=== PATIENT | male | born 1960 | race Caucasian/White ===

== ENCOUNTER → 2017-12-05 08:07 | Outpatient (CLI) | payer BC, SELFPAY | PROVIDERS: PCP Family Medicine; Visit Provider Nurse Practitioner | DX: Z82.49 Family history of ischemic heart disease and other diseases of the circulatory system (principal); R06.02 Shortness of breath; R60.9 Edema, unspecified; R53.83 Other fatigue | CPT/HCPCS: 93017 ==

== ENCOUNTER → 2017-12-15 07:04 | Outpatient (CLI) | payer BC, SELFPAY ==
--- NOTE | 2017-12-15 07:08 | NM_ITS ---
History and Indications: Hyperlipidemia, family history, shortness of breath, palpitations and fatigue Procedure: Patient exercised on [place] protocol 10 minutes and 15 seconds, resting heart rate was 56 bpm, resting blood pressure 139/79, with exercise maximum heart rate achieved was 1 72 bpm which is equal to 106% of the maximum predicted heart rate and a blood pressure was 192/86 . Test was stopped due to shortness of breath and fatigue patient denied any complained of chest pain. Patient has good exercise capacity achieved 12.8mets of workload on treadmill, the blood pressure response to exercise was adequate. Electrocardiogram: Resting electrocardiogram showed sinus rhythm, with exercise there is less than 1.[address] segment depression noted from the baseline EKG. The EKG portion of the exercise Myoview is negative for ischemia. Cardiac stress and resting SPECT images: Cardiac stress and rest SPECT images were obtained using technetium 99 Myoview 32.5 mCi at stress and 10.7 mCi at rest. Gated SPECT further analysis of segmental wall motion and calculation of the ejection fraction also done. Cardiac stress and rest SPECT images show uniform myocardial activity without any segmental perfusion abnormality, computer derived ejection fraction is 51% with no obvious regional wall motion abnormality, right ventricle is normal size and contractility. Conclusion: 1. The EKG portion of the exercise Myoview is negative for ischemia, patient has good exercise capacity achieved 12.8mets of workload on treadmill, the blood pressure response to exercise was adequate, there was no exercise-induced chest discomfort. 2. No obvious scintigraphic evidence of reversible ischemia seen, either derived ejection fraction 51% with no obvious regional wall motion abnormality, right ventricle is normal size and contractility. 3. Normal exercise Myoview study.
== END ==
PROVIDERS: PCP Family Medicine; Visit Provider Nurse Practitioner
DX: R94.39 Abnormal result of other cardiovascular function study (principal)
CPT/HCPCS: 78452; 93017; A9502

== ENCOUNTER → 2019-12-25 08:12 | Outpatient (POV) | payer OTHER, SELFPAY | PROVIDERS: PCP Family Medicine; Visit Provider Physician Assistant | DX: Z00.00 Encounter for general adult medical examination without abnormal findings (principal) ==

== ENCOUNTER → 2020-01-02 14:12 | Outpatient (CLI) | payer OTHER, SELFPAY ==
--- NOTE | 2020-01-02 14:23 | XR_ITS ---
PROCEDURE: XR CHEST AP CLINICAL HISTORY: COUGH Cough and shortness of COMPARISON: No exams were available for comparison FINDINGS: The cardiomediastinal silhouette and pulmonary vascularity are within normal limits. The lungs are clear without infiltrates, suspicious nodules, or pleural effusions. No acute bony abnormalities. IMPRESSION: No acute findings. Dictated by: Christopher Hanna MD 01/02/2020 15:19 Electronically signed by Christopher Hanna MD in [place] 01/02/2020 15:19
[2020-01-02 15:26] LABS: Coronavirus 19 IgM Antibody Negative (Negative)
[2020-01-02 15:34] LABS: Coronavirus 19 IgG Antibody Positive (Negative)
[2020-01-04 13:37] LABS: Covid-19 Nasal PCR Sendout Lex NOT DETECTED
== END ==
PROVIDERS: PCP Family Medicine; Visit Provider Family Medicine
DX: Z03.818 Encounter for observation for suspected exposure to other biological agents ruled out (principal); R05 Cough
CPT/HCPCS: 36415; 71045; 86328; U0004

== ENCOUNTER → 2020-01-15 08:28 | Outpatient (POV) | payer OTHER, SELFPAY | PROVIDERS: PCP Family Medicine; Visit Provider Dermatology | DX: Z00.00 Encounter for general adult medical examination without abnormal findings (principal) ==

== ENCOUNTER → 2020-04-23 13:48 | Outpatient (CLI) | payer OTHER, SELFPAY ==
--- NOTE | 2020-04-23 13:56 | XR_ITS ---
PROCEDURE: XR CHEST 2V CLINICAL HISTORY: SOB COMPARISON: CR XR CHEST AP from 01/02/2020 FINDINGS: The cardiomediastinal silhouette and pulmonary vascularity are within normal limits. The lungs are clear without infiltrates, suspicious nodules, or pleural effusions. There is wedging of several dorsal vertebral bodies at T6-T7-T8-T9 and T12. Anterior osteophytes are present in the midthoracic spine. IMPRESSION: Thoracic kyphosis with multi wedge deformities which appear chronic otherwise negative Dictated by: Christopher Hanna MD 04/23/2020 15:27 Christopher Hanna MD in [facility] 04/23/2020 15:27
== END ==
PROVIDERS: PCP Family Medicine; Visit Provider Family Medicine
DX: R06.02 Shortness of breath (principal)
CPT/HCPCS: 71046

== ENCOUNTER 2021-04-05 10:51 | Emergency (ER) | payer OTHER, SELFPAY ==
[2021-04-05 11:12] VITALS: BP 111/81; PULSE 89; RESP 16; TEMP 36.8; O2SAT 95; BMI 31.4
--- NOTE | 2021-04-05 11:15 | HMH.EDUTC ---
[facility] Disposition Clinical Impression: Viral syndrome, Bronchitis, Exposure to COVID-19 virus Disposition: Home, Self-Care Condition on Discharge: Good Instructions: DI for COVID-19 (Suspected or Confirmed ), Preventing the Spread of Coronavirus Discharge Instructions Additional Instructions: Drink plenty of fluids. Take tylenol or ibuprofen for pain or fever. Take the medications as directed. Follow up with your regular doctor. GO TO THE ER FOR ANY WORSENING SYMPTOMS Quarantine until you know the results of your covid-19 test. If it is positive, the health department should call you and give you further instructions about your length of Quarantine and other things. Notify your school or workplace of your results and follow their instructions regarding return to work/school. Prescriptions: methylPREDNISolone [Medrol] 4 mg PO DIRECTED 6 Days #21 packet Transmission Status: Received by [facility] # Promethazine HCl [Phenergan 25mg tab] 25 mg PO Q6H PRN #12 tab PRN Reason: Nausea And Vomiting Transmission Status: Received by [facility] # Azithromycin [Z-William 250mg Tab*] 250 mg PO UD DOSE PK #6 tab Transmission Status: Received by [facility] # Referrals: Sunny Curiel MD [Primary Care Provider] - Time of Disposition: 11:37 Medical Decision Making - Medical Records Medical records reviewed: No: I reviewed the patient's medical records. - Javier Inquiry Pt receiving controlled substance: No Vital Signs: 04/05/21 11:12 04/05/21 11:18 Temperature 98.2 F 98.2 F Temperature Source Oral Pulse Rate 88 Pulse Rate [Left] 89 Respiratory Rate 16 18 Blood Pressure 111/81 Blood Pressure [Right Arm] 111/81 Blood Pressure Mean [Right Arm] 91 02 Sat by Pulse Oximetry 95 - Lab Data Lab results reviewed: Yes: I reviewed the patient's lab results. [facility] HPI - General Stated complaint: covid exposure,symptoms Time Seen by Provider: 04/05/21 11:15 Mode of Arrival: Ambulatory Source of Information: Patient Limitations: No Limitations Description of Symptoms (Recalled from Triage Doc. by RN): pt c/o cough and NUGENT. is positive for covid HEENT Symptoms (Recalled from RN notes): Yes (NUGENT) Resp Symptoms (Recalled from RN notes): Yes (cough) Skin Symptoms (Recalled from RN notes): No MS Symptoms (Recalled from RN notes): No Functional Status (Recalled from RN notes): na - History of Present Illness Provider Complaint: He states that he has felt bad for the past 1 day. His currently has covid-19. He c/o feeling very fatigued. He also has some body aches, runny nose and a cough. He has some chest congestion also. He has a history of getting bronchitis and very congested in his chest when he gets sick. He has had some chilling, but no documented fever. - Related Data Home Medications Medication Instructions Recorded Confirmed Fenofibrate 160 mg PO DAILY 10/10/18 11/26/19 omeprazole 20 mg capsule,delayed PO 11/26/19 11/26/19 release Previous Rx's Medication Instructions Recorded sulfamethoxazole 800 1 tab PO BID 7 Days #14 tab 01/18/19 mg-trimethoprim 160 mg tablet Azithromycin [Z-William 250mg Tab*] 250 mg PO UD DOSE PK #6 tab 04/05/21 Promethazine HCl [Phenergan 25mg 25 mg PO Q6H PRN #12 tab 04/05/21 tab] methylPREDNISolone [Medrol] 4 mg PO DIRECTED 6 Days #21 04/05/21 packet Allergies Allergy/AdvReac Type Severity Reaction Status Date / Time Penicillins Allergy Unknown Verified 11/26/19 15:56 allergy reaction - Worker's Comp Is this a Worker's Comp case?: No H History - Hepatitis A Screen Drug use history?: No High risk sexual behaviors?: No History of sexually transmitted infection?: No Currently employed?: No Childcare worker?: No Do you have indoor plumbing?: Yes Do you have electricity?: Yes Attestation statement:: This patient has been screened for Hepatitis A risk fac
[2021-04-05 11:18] VITALS: BP 111/81; PULSE 88; RESP 18; TEMP 36.8
== END 2021-04-05 11:42 | disposition home or self-care (01) ==
PROVIDERS: Emergency Provider Nurse Practitioner Family; PCP Family Medicine
DX: U07.1 COVID-19 (principal)
CPT/HCPCS: 99202; C9803; G0463; U0003; U0005

== ENCOUNTER 2021-04-10 09:55 | Outpatient (CLI) | payer OTHER, SELFPAY ==
[2021-04-10] VITALS (8 sets, daily range): BP systolic 104–134; BP diastolic 60–68; PULSE 69–82; RESP 18–20; TEMP 36.9–37.1; O2SAT 92–94
== END 2021-04-10 12:15 | disposition home or self-care (01) ==
LOC: INF 09:56
PROVIDERS: PCP Family Medicine; Visit Provider Family Medicine
DX: U07.1 COVID-19 (principal); Z23 Encounter for immunization
CPT/HCPCS: 96365

== ENCOUNTER 2021-04-11 08:48 | Emergency (ER) | payer OTHER, SELFPAY ==
[2021-04-11] VITALS (9 sets, daily range): BP systolic 116–142; BP diastolic 63–101; PULSE 74–93; RESP 13–20; TEMP 36.8; O2SAT 88–96; BMI 31.4
--- NOTE | 2021-04-11 09:04 | ECG_ITS ---
APPROVED REPORT Exam: Resting ECG HR:73 bpm ECG Measurements Heart Rate 73 AXES GA 156 P 64 QRSd 82 QRS -14 QT 394 T 14 QTc 434 Conclusion Normal sinus rhythm Normal ECG Electronically signed by : Bertt Rivas MD 04/13/2021 18:00:53
--- NOTE | 2021-04-11 09:18 | HMH.EDGENADL ---
ED Disposition Clinical Impression: Pneumonia due to COVID-19 virus Respiratory failure with hypoxia Qualifiers: Chronicity: acute Qualified Code(s): J96.01 - Acute respiratory failure with hypoxia Disposition: Home, Self-Care Condition on Discharge: Fair Additional Instructions: Oxygen at 2 L by nasal cannula. Decadron 6 mg daily for 5 days. Take aspirin 81 mg daily until your coronavirus symptoms resolved. Return to the emergency department if increasing shortness of breath or pulse oximetry less than 90% on oxygen. Call Dr. Preston on Tuesday for follow-up. COVID-19 Isolation: Isolate yourself for a MINIMUM of 10 days from onset of symptoms: What to do: Monitor your symptoms. If you have an emergency warning sign (including trouble breathing), seek emergency medical care immediately. Stay in a separate room from other household members, if possible. Use a separate bathroom, if possible. Avoid contact with other members of the household and pets. Don?t share personal household items, like cups, towels, and utensils. Wear a mask when around other people if able. You can be around others AFTER: 10 days since symptoms first appeared AND 24 hours with no fever without the use of fever-reducing medications AND Other symptoms of COVID-19 are improving Prescriptions: dexAMETHasone [Decadron] 6 mg PO DAILY #5 tab Transmission Status: Pending to [facility] Referrals: Sunny Curiel MD [Primary Care Provider] - - Critical Care Critical Care Time: No Attestation: On 04/11/21, the high probability of a clinically significant, sudden or life threatening deterioration of the following system(s) required my full and direct attention, intervention and personal management. The time I documented below is in addition to time spent performing reported procedures but includes the following listed in this critical care notation. Medical Decision Making - Javier Inquiry Pt receiving controlled substance: No Vital Signs: 04/11/21 08:55 04/11/21 09:00 04/11/21 09:30 Temperature 98.3 F Temperature Source Oral Pulse Rate 74 76 Pulse Rate [Left Radial] 76 Respiratory Rate 18 13 Blood Pressure 127/68 127/63 Blood Pressure [Right Arm] 117/72 Blood Pressure Mean 81 86 Blood Pressure Mean [Right Arm] 87 Blood Pressure Source [Right Arm] Automatic Cuff Blood Pressure Position [Right Arm] Sitting 02 Sat by Pulse Oximetry 88 L 95 94 L Oxygen Delivery Method Room Air Oxygen Flow Rate (LPM) 04/11/21 10:59 04/11/21 11:31 04/11/21 12:00 Temperature Temperature Source Pulse Rate 82 92 H 92 H Pulse Rate [Left Radial] Respiratory Rate 18 18 Blood Pressure 116/89 142/87 H 122/101 H Blood Pressure [Right Arm] Blood Pressure Mean 95 101 103 Blood Pressure Mean [Right Arm] Blood Pressure Source [Right Arm] Blood Pressure Position [Right Arm] 02 Sat by Pulse Oximetry 95 96 96 Oxygen Delivery Method Nasal Cannula Nasal Cannula Oxygen Flow Rate (LPM) 2 2 04/11/21 12:30 Temperature Temperature Source Pulse Rate 93 H Pulse Rate [Left Radial] Respiratory Rate 18 Blood Pressure 140/86 Blood Pressure [Right Arm] Blood Pressure Mean 105 Blood Pressure Mean [Right Arm] Blood Pressure Source [Right Arm] Blood Pressure Position [Right Arm] 02 Sat by Pulse Oximetry 94 L Oxygen Delivery Method Nasal Cannula Oxygen Flow Rate (LPM) 2 - Lab Data Lab Results 04/11/21 09:29: WBC 7.9, RBC 5.22, Hgb 15.7, Hct 45.9, MCV 87.9, MCH 30.1, MCHC 34.3, RDW 13.8, Plt Count 240, MPV 8.0, Neut % (Auto) 82.9 H, Lymph % (Auto) 13.4, [place] % (Auto) 3.2, Eos % (Auto) 0.0 L, Baso % (Auto) 0.4, Neut # (Auto) 6.6, Lymph # (Auto) 1.1, [place] # (Auto) 0.3, Eos # (Auto) 0.0, Baso # (Auto) 0.0 04/11/21 09:29: Sodium 140, Potassium 3.9, Chloride 104, Carbon Dioxide 26, Anion Gap 13.9, BUN 16, Creatinine 0.90, Estimated Creat Clear 112, Estimated GFR 86, Est GFR ( Amer
--- NOTE | 2021-04-11 09:27 | XR_ITS ---
PROCEDURE INFORMATION: Exam: XR Chest Exam date and time: 04/11/2021 9:27 AM Age: 61 years old Clinical indication: Shortness of breath; Additional info: Covid, SOA TECHNIQUE: Imaging protocol: XR of the chest. Views: 1 view. COMPARISON: CT ANGIO CHEST PE PROTOCOL 04/11/2021 10:01 AM FINDINGS: Lungs: Patchy opacities bilaterally. Findings consistent with frequently reported features of Covid-19 pneumonia. Pleural spaces: Unremarkable. No pleural effusion. No pneumothorax. Heart/Mediastinum: Unremarkable. No cardiomegaly. Bones/joints: Unremarkable. IMPRESSION: Patchy opacities bilaterally. Findings consistent with frequently reported features of Covid-19 pneumonia. Recommend follow-up as indicated.
--- NOTE | 2021-04-11 09:27 | CT_ITS ---
PROCEDURE INFORMATION: Exam: CTA Chest With Contrast Exam date and time: 04/11/2021 9:27 AM Age: 61 years old Clinical indication: Shortness of breath; Additional info: Covid, SOA TECHNIQUE: Imaging protocol: Computed tomographic angiography of the chest with contrast. 3D rendering (Not supervised by radiologist): MIP and/or 3D reconstructed images were created by the technologist. Radiation optimization: All CT scans at this facility use at least one of these dose optimization techniques: automated exposure control; mA and/or kV adjustment per patient size (includes targeted exams where dose is matched to clinical indication); or iterative reconstruction. Contrast material: ISOVUE; Contrast volume: 75 ml; Contrast route: INTRAVENOUS (IV); COMPARISON: CR XR CHEST 2V 04/23/2020 2:00 PM FINDINGS: Pulmonary arteries: Negative for acute pulmonary embolism. Aorta: Unremarkable. No aortic aneurysm. No aortic dissection. Lungs: Patchy areas of ground-glass density bilaterally. Findings consistent with frequently reported features of Covid-19 pneumonia. 5 mm pulmonary nodules within the left subpleural upper and lower lobes. Recommend follow-up as indicated. Pleural spaces: Unremarkable. No pneumothorax. No pleural effusion. Heart: Unremarkable. No cardiomegaly. No pericardial effusion. Lymph nodes: Unremarkable. No enlarged lymph nodes. Bones/joints: Nonacute wedge fractures in the midthoracic spine. Soft tissues: Unremarkable. IMPRESSION: 1. Negative for acute pulmonary embolism. 2. Patchy areas of ground-glass density bilaterally. Findings consistent with frequently reported features of Covid-19 pneumonia. 3. 5 mm pulmonary nodules within the left subpleural upper and lower lobes. Recommend follow-up as indicated. FLEISCHNER CRITERIA FOR MANAGEMENT OF PULMONARY NODULES Low Risk Patients: <6mm, no follow-up 6-8mm, 6-12 month follow-up >8mm, CT @ 3, months, PET/CT or biopsy High Risk Patients: <6mm, follow-up 12 months 6-8mm, 6-12 month then 18-24 month follow-up >8mm, same as for low risk References: Kale Saldana et al. Guidelines for Management of Incidental Pulmonary Nodules Detected on CT Images: From the Fleischner Society 2017. Radiology. 2017;284(1):228-243.
[2021-04-11 09:34] LABS: Basophils % 0.4 % (0.1-2.0); Hematocrit 45.9 % (42.0-52.0); Hemoglobin 15.7 g/dL (14.1-18.0); Lymphocytes # 1.1 K/mm3 (0.7-4.5); Lymphocytes % 13.4 % (10-50); Mean Corpuscular HGB Conc 34.3 g/dL (31.8-35.4); Mean Corpuscular Hemoglobin 30.1 pg (27.0-31.2); Mean Corpuscular Volume 87.9 fl (80-94); Monocytes # 0.3 K/mm3 (0.1-1.0); Monocytes % 3.2 % (1.7-9.3); Neutrophils # 6.6 K/mm3 (1.8-7.8); Neutrophils % 82.9 % (37.0-80.0); Platelet Count 240 K/mm3 (142-424); Red Blood Count 5.22 M/mm3 (4.60-6.20); Red Cell Distribution Width 13.8 % (11.5-17.5); White Blood Count 7.9 K/mm3 (4.8-10.8)
[2021-04-11 09:36] LABS: Chloride 104 mmol/L (98-107); Potassium 3.9 mmoL/L (3.5-5.1); Sodium 140 mmol/L (136-145)
[2021-04-11 09:38] LABS: Alanine Aminotransferase 70 U/L (12-78); Alkaline Phosphatase 81 U/L (38-126); Aspartate Amino Transferase 73 U/L (17-59); Bilirubin,Total 0.8 mg/dl (0.2-1.3); Blood Urea Nitrogen 16 mg/dl (9-20); Creatinine Clearance Estimated 112 mL/min (50-200); Estimated Glomerular Filt Rate 86 ml/min (>60); GFR (African American) 104 ML/MIN (>60)
[2021-04-11 09:39] LABS: Albumin Level 4.3 g/dl (3.5-5.0); Albumin/Globulin Ratio 1.2 (1.1-1.8); Anion Gap 13.9 mEq/L (5-15); Calcium 9.3 mg/dl (8.4-10.2); Carbon Dioxide 26 mmol/L (22.0-30.0); Globulin 3.6 g/dL (1.3-3.2); Glucose 121 mg/dl (74-100); Total Protein,Serum 7.9 g/dl (6.3-8.2)
--- NOTE | 2021-04-11 11:36 | PC.NURSE ---
Dr Finley paged for Dr Preston pt
--- NOTE | 2021-04-11 11:56 | PC.NURSE ---
Dr. Tushar bojorquez
--- NOTE | 2021-04-11 11:59 | PC.NURSE ---
called dietary for some soup for pt
--- NOTE | 2021-04-11 12:32 | PC.NURSE ---
Dr. Tushar bojorquez
--- NOTE | 2021-04-11 13:08 | PC.NURSE ---
Faxed documents needed for home oxygen to [facility]
== END 2021-04-11 13:52 | disposition home or self-care (01) ==
PROVIDERS: Emergency Provider Emergency Medicine; PCP Family Medicine
DX: U07.1 COVID-19 (principal); J12.82 Pneumonia due to coronavirus disease 2019; J96.01 Acute respiratory failure with hypoxia; K21.9 Gastro-esophageal reflux disease without esophagitis; E78.5 Hyperlipidemia, unspecified; Z79.899 Other long term (current) drug therapy
CPT/HCPCS: 71045; 71275; 80053; 85025; 93005; 96365; 96375; 99283; Q9967

== ENCOUNTER 2021-04-15 10:24 | Inpatient (IN) | payer OTHER, SELFPAY ==
[2021-04-15] VITALS (14 sets, daily range): BP systolic 121–153; BP diastolic 77–103; PULSE 71–104; RESP 18–28; TEMP 36.6–37; O2SAT 92–98; BMI 31.4
--- NOTE | 2021-04-15 11:01 | XR_ITS ---
PROCEDURE: XR CHEST PORTABLE CLINICAL HISTORY: SOA, cough COMPARISON: CR XR CHEST AP from 01/02/2020 CR XR CHEST 2V from 04/23/[address] ANGIO CHEST PE PROTOCOL from 04/11/2021 CR XR CHEST PORTABLE from 04/11/2021 FINDINGS: The cardiomediastinal silhouette and pulmonary vascularity are within normal limits. Persistent bilateral areas of consolidation and atelectatic changes consistent with Covid19 pneumonia. Overall not significantly changed. No effusions or pneumothorax. No acute bony abnormalities. IMPRESSION: No change bilateral Covid19 pneumonia Dictated by: Christopher Hanna MD 04/15/2021 12:18 Christopher Hanna MD in [facility] 04/15/2021 12:18
[2021-04-15 11:12] LABS: Basophils % 0.3 % (0.1-2.0); Eosinophils % 0.1 % (0.1-12.0); Hematocrit 50.2 % (42.0-52.0); Hemoglobin 16.9 g/dL (14.1-18.0); Lymphocytes % 9.3 % (10-50); Mean Corpuscular HGB Conc 33.7 g/dL (31.8-35.4); Mean Corpuscular Hemoglobin 30.3 pg (27.0-31.2); Mean Corpuscular Volume 89.9 fl (80-94); Mean Platelet Volume 7.3 fl (7.4-10.4); Monocytes # 0.4 K/mm3 (0.1-1.0); Neutrophils # 9.1 K/mm3 (1.8-7.8); Neutrophils % 86.4 % (37.0-80.0); Platelet Count 382 K/mm3 (142-424); Red Blood Count 5.59 M/mm3 (4.60-6.20); Red Cell Distribution Width 12.9 % (11.5-17.5); White Blood Count 10.6 K/mm3 (4.8-10.8)
[2021-04-15 11:17] LABS: MANUAL DIFFERENTIAL MANUAL DIFFERENTIAL (MANUAL DIFF)
[2021-04-15 11:20] LABS: Chloride 102 mmol/L (98-107); Sodium 138 mmol/L (136-145)
[2021-04-15 11:21] LABS: Potassium 3.9 mmoL/L (3.5-5.1)
[2021-04-15 11:23] LABS: Alanine Aminotransferase 90 U/L (12-78); Aspartate Amino Transferase 58 U/L (17-59); Blood Urea Nitrogen 22 mg/dl (9-20); Creatinine Clearance Estimated 112 mL/min (50-200); Estimated Glomerular Filt Rate 98 ml/min (>60); GFR (African American) 119 ML/MIN (>60)
[2021-04-15 11:24] LABS: Albumin Level 4.2 g/dl (3.5-5.0); Albumin/Globulin Ratio 1.2 (1.1-1.8); Alkaline Phosphatase 79 U/L (38-126); Anion Gap 14.9 mEq/L (5-15); Bilirubin,Total 0.9 mg/dl (0.2-1.3); Calcium 9.4 mg/dl (8.4-10.2); Carbon Dioxide 25 mmol/L (22.0-30.0); Globulin 3.6 g/dL (1.3-3.2); Glucose 111 mg/dl (74-100); Lactic Acid 1.2 mmol/L (0.7-2.1); Total Protein,Serum 7.8 g/dl (6.3-8.2)
--- NOTE | 2021-04-15 11:30 | PC.NURSE ---
FADUMO GUTIERREZ states while in room with pt he increased O2 to 6L per NC r/t SaO2 91% will continue to monitor
--- NOTE | 2021-04-15 11:31 | CT_ITS ---
PROCEDURE INFORMATION: Exam: CTA Chest With Contrast Exam date and time: 04/15/2021 11:31 AM Age: 61 years old Clinical indication: Shortness of breath; Additional info: Covid, hypoxia TECHNIQUE: Imaging protocol: Computed tomographic angiography of the chest with contrast. 3D rendering (Not supervised by radiologist): MIP and/or 3D reconstructed images were created by the technologist. Radiation optimization: All CT scans at this facility use at least one of these dose optimization techniques: automated exposure control; mA and/or kV adjustment per patient size (includes targeted exams where dose is matched to clinical indication); or iterative reconstruction. Contrast material: ISOVUE 370; Contrast volume: 70 ml; Contrast route: INTRAVENOUS (IV); COMPARISON: CT ANGIO CHEST PE PROTOCOL 04/11/2021 10:01 AM FINDINGS: Pulmonary arteries: No pulmonary emboli identified. Aorta: Unremarkable. No aortic aneurysm. No aortic dissection. Lungs: No substantial change in the appearance of patchy ground-glass airspace opacities throughout all lobes of the lungs bilaterally. Pleural spaces: Similar appearance of 5 mm subpleural nodules in the lingula (series 2, image 179) and left lower lobe (image 204). Heart: Unremarkable. No cardiomegaly. No pericardial effusion. Lymph nodes: Unremarkable. No enlarged lymph nodes. Liver: Similar low-density lesions at the hepatic dome. Bones/joints: Remote appearing wedge deformities in the midthoracic spine. No acute fractures. Soft tissues: Unremarkable. IMPRESSION: 1. No pulmonary emboli identified. 2. No substantial change in the appearance of multilobar pneumonia relative to 04/11/2021. 3. Redemonstrated 5 mm left lung nodules. For patients at low risk (minimal or absent history of smoking and of other known risk factors), no routine follow-up is indicated. For patients at high risk (history of smoking or of other known risk factors), consider optional CT Chest at 12 months. (Reference: Kale) REFERENCES: Kale Saldana, et al. Guidelines for Management of Incidental Pulmonary Nodules Detected on CT Images: From the Fleischner Society 2017. Radiology. 2017;284(1):228-243.
--- NOTE | 2021-04-15 11:33 | PC.NURSE ---
notified rad of CTA order
[2021-04-15 11:40] LABS: Lymphocytes % 8 % (10-50); Monocytes % 7 % (2-9); Neutrophils % 85 % (42-76); Total Cells Counted 100
[2021-04-15 11:41] LABS: Hypochromasia 1+; Microcytosis 1+; Platelet Estimate Normal
[2021-04-15 11:44] LABS: Alanine Aminotransferase 89 U/L (12-78); Albumin Level 4.1 g/dl (3.5-5.0); Albumin/Globulin Ratio 1.1 (1.1-1.8); Alkaline Phosphatase 72 U/L (38-126); Aspartate Amino Transferase 56 U/L (17-59); Bilirubin,Total 1.1 mg/dl (0.2-1.3); Blood Urea Nitrogen 23 mg/dl (9-20); Calcium 9.5 mg/dl (8.4-10.2); Carbon Dioxide 25 mmol/L (22.0-30.0); Chloride 102 mmol/L (98-107); Creatinine Clearance Estimated 112 mL/min (50-200); Estimated Glomerular Filt Rate 98 ml/min (>60); GFR (African American) 119 ML/MIN (>60); Globulin 3.6 g/dL (1.3-3.2); Glucose 109 mg/dl (74-100); Lactate Dehydrogenase 275 U/L (313-618); Sodium 137 mmol/L (136-145); Total Protein,Serum 7.7 g/dl (6.3-8.2)
[2021-04-15 11:48] LABS: D-Dimer 0.74 ug/mL (0.0-0.5)
--- NOTE | 2021-04-15 12:18 | PC.NURSE ---
pt return from CT
--- NOTE | 2021-04-15 12:28 | HMH.EDSOB ---
ED Disposition Clinical Impression: COVID-19, Pneumonia due to COVID-19 virus Disposition: Admitted As Inpatient Condition on Discharge: Fair Referrals: Cortes Mims MD [Primary Care Provider] - - Critical Care Critical Care Time: No Attestation: On 04/15/21, the high probability of a clinically significant, sudden or life threatening deterioration of the following system(s) required my full and direct attention, intervention and personal management. The time I documented below is in addition to time spent performing reported procedures but includes the following listed in this critical care notation. Medical Decision Making - Javier Inquiry Pt receiving controlled substance: No Vital Signs: 04/15/21 10:25 04/15/21 10:38 04/15/21 11:00 Temperature 98.0 F Temperature Source Oral Pulse Rate 86 83 Pulse Rate [Right Radial] 99 H Respiratory Rate 22 22 22 Blood Pressure 134/87 121/80 Blood Pressure [Right Arm] 134/87 Blood Pressure Mean 111 93 Blood Pressure Mean [Right Arm] 102 Blood Pressure Source [Right Arm] Automatic Cuff Blood Pressure Position [Right Arm] Sitting 02 Sat by Pulse Oximetry 93 L 94 L 92 L Oxygen Delivery Method Nasal Cannula Nasal Cannula Nasal Cannula Oxygen Flow Rate (LPM) 4 4 4 04/15/21 11:12 04/15/21 11:30 04/15/21 11:31 Temperature Temperature Source Pulse Rate 86 Pulse Rate [Right Radial] Respiratory Rate 22 Blood Pressure 137/77 Blood Pressure [Right Arm] Blood Pressure Mean 86 Blood Pressure Mean [Right Arm] Blood Pressure Source [Right Arm] Blood Pressure Position [Right Arm] 02 Sat by Pulse Oximetry 94 L 92 L 92 L Oxygen Delivery Method Nasal Cannula Nasal Cannula Nasal Cannula Oxygen Flow Rate (LPM) 4 4 6 - Lab Data Lab Results 04/15/21 11:00: WBC 10.6, RBC 5.59, Hgb 16.9, Hct 50.2, MCV 89.9, MCH 30.3, MCHC 33.7, RDW 12.9, Plt Count 382, MPV 7.3 L, Neut % (Auto) 86.4 H, Lymph % (Auto) 9.3 L, [place] % (Auto) 4.0, Eos % (Auto) 0.1, Baso % (Auto) 0.3, Neut # (Auto) 9.1 H, Lymph # (Auto) 1.0, [place] # (Auto) 0.4, Eos # (Auto) 0.0, Baso # (Auto) 0.0, Total Counted 100, Neutrophils % (Manual) 85 H, Lymphocytes % (Manual) 8 L, Monocytes % (Manual) 7, Platelet Estimate Normal, Hypochromasia 1+, Microcytosis 1+ 04/15/21 11:00: Sodium 138, Potassium 3.9, Chloride 102, Carbon Dioxide 25, Anion Gap 14.9, BUN 22 H, Creatinine 0.80, Estimated Creat Clear 112, Estimated GFR 98, Est GFR ( Amer) 119, Glucose 111 H, Calcium 9.4, Total Bilirubin 0.9, AST 58, ALT 90 H, Alkaline Phosphatase 79, Total Protein 7.8, Albumin 4.2, Globulin 3.6 H, Albumin/Globulin Ratio 1.2 04/15/21 11:00: Lactate 1.2 04/15/21 11:00: D-Dimer 0.74 H 04/15/21 11:00: Sodium 137, Potassium 4.0, Chloride 102, Carbon Dioxide 25, Anion Gap 14.0, BUN 23 H, Creatinine 0.80, Estimated Creat Clear 112, Estimated GFR 98, Est GFR ( Amer) 119, Glucose 109 H, Calcium 9.5, Total Bilirubin 1.1, AST 56, ALT 89 H, Alkaline Phosphatase 72, Lactate Dehydrogenase 275 L, Total Protein 7.7, Albumin 4.1, Globulin 3.6 H, Albumin/Globulin Ratio 1.1 Result diagrams: 04/15/21 11:00 04/15/21 11:00 Orders (Tests/Meds): ED MEDICATIONS Discontinued Medications Generic Name Dose Route Start Last Admin Trade Name Freq PRN Reason Stop Dose Admin Iopamidol 70 ml 04/15/21 12:22 04/15/21 12:23 Iopamidol-370 (76%);100ml Bottle IV 04/15/21 12:23 70 ml ONCE ONE Administration Sodium Chloride 40 ml 04/15/21 12:22 04/15/21 12:23 0.9 % Sodium Chloride 50 Ml Vial IV 04/15/21 12:23 40 ml ONCE ONE Administration Sodium Chloride 10 ml 04/15/21 12:22 04/15/21 12:23 Sodium Chloride 0.9% 10ml Syr (Rad Only) IV 04/15/21 12:23 10 ml ONCE ONE Administration ORDERS Category Date Time Status CTA Chest [CT angio chest PE protocol] Stat Cat Scan 04/15/21 11:31 Taken Rapid PCR Covid and Flu A/B Stat Lab 04/15/21 11:44 Ordered Blood Culture Stat Micr
[2021-04-15 12:48] LABS: Influenza A, PCR Not Detected (NotDetected); Influenza B, PCR Not Detected (NotDetected)
--- NOTE | 2021-04-15 13:02 | PC.NURSE ---
pt sitting up eating lunch tray at this time
--- NOTE | 2021-04-15 13:07 | PC.NURSE ---
Dr Felicita bojorquez
[2021-04-15 13:13] LABS: Coronavirus 19, PCR Detected (NotDetected)
--- NOTE | 2021-04-15 13:45 | HMH.PHAINT ---
MEDICATION RECONCILIATION COMPLETE USING SURESCRIPTS AND PREVIOUS DISCHARGE PAPERWORK
--- NOTE | 2021-04-15 14:00 | PC.NURSE ---
Called report to Jane in the unit
--- NOTE | 2021-04-15 14:10 | PC.NURSE ---
pt arrived to [facility] unit room 266 via wheelchair from ED.
--- NOTE | 2021-04-15 14:23 | HMH.PHAVTE ---
[facility] Pharmacy VTE Monitoring - Patient Demographics Admission date: 04/15/21 Report Date: 04/15/21 Time: 14:23 Allergies/Adverse Reactions: Patient Allergies Penicillins Allergy (Verified 11/26/19 15:56) Unknown allergy reaction Height: 1.8 m Weight: 102.058 kg Patient Problems: Current Active Problems Pneumonia due to COVID-19 virus (Acute) COVID-19 (Acute) - VTE Risk Labs: VTE Related Lab Results Hgb 16.9 g/dL (14.1-18.0) 04/15/21 11:00 Hct 50.2 % (42.0-52.0) 04/15/21 11:00 Plt Count 382 K/mm3 (142-424) 04/15/21 11:00 BUN 22 mg/dl (9-20) H 04/15/21 11:00 BUN 23 mg/dl (9-20) H 04/15/21 11:00 Creatinine 0.80 mg/dl (0.66-1.25) 04/15/21 11:00 Creatinine 0.80 mg/dl (0.66-1.25) 04/15/21 11:00 Estimated Creat Clear 112 mL/min (50-200) 04/15/21 11:00 Estimated Creat Clear 112 mL/min (50-200) 04/15/21 11:00 - Prophylaxis VTE Prophylaxis Ordered?: Yes Types of VTE Prophylaxis: TEDS Knee High, Pharmacological Location of Applied Device: Bilateral Lower Extremeties Pharmacologic Type: Enoxaparin
--- NOTE | 2021-04-15 15:13 | PC.NURSE ---
pt pushed call light and verbalized that he did NOT want to receive Remdesivir. Infusion is currently running and he has received aprox 20mL of bag. I took bag down and discarded remainder of medication. Pt explains that he had 2 buddies of COVID that received Remdesivir . I verbalized understanding. Called pharmacy and updated them. Faxed discontinued order to pharmacy and updated Dr. Mims's office.
--- NOTE | 2021-04-15 16:30 | HMH.PULMCON ---
*Admission Date: 04/15/21 *Reason for consult:: Acute hypoxic reps failure, COVID pneumonia *History of present illness: Mr. Haynes 61-year-old male no reported significant smoking history, no prior respiratory complaints never used inhalers before presented to the hospital worsening respiratory distress patient was diagnosed with COVID-19 pneumonia 5 days ago during which a CT was performed that was negative for pulmonary embolism, patient was given monoclonal antibody infusion and was sent home on antibiotics he was also started on anticoagulation as an outpatient basis. Patient admits continued worsening respiratory symptoms and presented to the ER during which he was found to be hypoxic and needing oxygen per minute maintaining saturations at desired level and was eventually admitted to the hospital and pulmonary was called for further management [facility] History Medical History: Reports:: Gastroesophageal Reflux Disease(GERD), Hyperlipidemia Denies:: Cancer, Diabetes Mellitus Type 1, Diabetes Mellitus Type 2, Internal Pacemaker, Lung Disease, MRSA, Seizures *Have you ever received a pneumonia vaccine?: No *Have you received a flu vaccine this season?: No Other Medical History: Reports: Other Laterality Cases: Bilateral: Tonsillectomy Other Surgeries: Yes: Other (cystectomy). No: Pacemaker Amputation: No Fractures: No - *Social History Last grade of school completed: High school graduate Smoking Status: Never smoker Alcohol Intake: never Substance Use Type: denies use *Occupational Status:: employed Housing: house Household Members: spouse *Travel in the last 8 weeks: None Family Hx:: Non-contributory ROS - Cons Reports anorexia, Reports body ache(s), Reports fatigue, Reports fever(s) - Eyes Denies blurry vision - ENT Denies bleeding gums - Card Reports shortness of breath, Reports shortness of breath with activity - Resp Respiratory: Reports shortness of breath, Reports chest congestion, Reports dyspnea on exertion, Denies excessive phlegm production, Denies coughing up blood - GI Gastrointestingal: Denies: abdominal pain Meds Home Medications Medication Instructions Recorded Confirmed Type Rivaroxaban [Xarelto] 20 mg PO HS 04/15/21 04/15/21 History dexAMETHasone [Dexamethasone] 6 mg PO DAILY 04/15/21 04/15/21 History levoFLOXacin [Levaquin 500mg 500 mg PO DAILY 04/15/21 04/15/21 History tab] Allergies Allergy/AdvReac Type Severity Reaction Status Date / Time Penicillins Allergy Unknown Verified 11/26/19 15:56 allergy reaction Exam - Constitutional Constitutional:: Present: no acute distress, comfortable - HENMT Exam HENMT: Present: normocephalic, atraumatic - Eye Exam Eyes:: Present: normal appearance both eyes and related structures - Neck Exam Neck:: Present: normal visual inspection - Respiratory Exam Respiratory:: Present: able to speak in complete sentences, respiratory distress, rales. Absent: accessory muscle use - Cardiovascular Exam Cardiac:: Present: S1, S2 - GI Exam GI:: Present: soft - Skin Exam Skin: Present: warm, no rash - Neurological Exam Neurological: Present: alert, awake, normal cognition - Extremities Exam Extremities: Present: no cyanosis, no clubbing, no edema Internal Medicine - CN: Reslt - Labs CBC & Chem 7: 04/15/21 11:00 04/15/21 11:00 Labs: Short CBC 04/15/21 Range/Units 11:00 WBC 10.6 (4.8-10.8) K/mm3 Hgb 16.9 (14.1-18.0) g/dL Hct 50.2 (42.0-52.0) % Plt Count 382 (142-424) K/mm3 BMP 04/15/21 04/15/21 11:00 11:00 Sodium 138 137 Potassium 3.9 4.0 Chloride 102 102 Carbon Dioxide 25 25 BUN 22 H 23 H Creatinine 0.80 0.80 Glucose 111 H 109 H Calcium 9.4 9.5 Liver Function 04/15/21 04/15/21 Range/Units 11:00 11:00 Total Bilirubin 0.9 1.1 (0.2-1.3) mg/dl AST 58 56 (17-59) U/L ALT 90 H 89 H (12-78) U/L Alkaline Phosphatase 79 72 (38-126) U/L
[2021-04-15 17:20] LABS: C-Reactive Protein 11.2 mg/L (0-4)
[2021-04-15 18:30] LABS: Ferritin 1130 ng/ml (17.9-464)
--- NOTE | 2021-04-15 18:48 | PC.NURSE ---
shift note: new admit from ED this afternoon. Pt is A&O. Is very anxious. Has no past medical hx per pt. Is on 6L NC cont. O2 sat remained >90%. O2 sat best when pt is prone or on his side. Dry hacky cough noted. NSR on tele. HTN noted. Afebrile. No edema. Ambulates without assistance in room and to bathroom. Voided once this shift. NO BM. O2 extension tubing applied to allow him more mobility around the room. Pt refused Remdesivir infusion but is agreeable to start Baricitinib tomorrow. Ate aprox 50% of dinner. has been updated on POC.
[2021-04-16] VITALS (8 sets, daily range): BP systolic 108–129; BP diastolic 70–88; PULSE 61–94; RESP 15–19; TEMP 36.4–36.9; O2SAT 90–97
--- NOTE | 2021-04-16 05:49 | PC.NURSE ---
NO acute changes overnight A&O x4. PT has remained on 6L NC through the night, sats >94%. Pt has proned himself for several hours this shift. NO c/o pain. Has ambulated with standby assist to the bathroom and tolerates well. VSS, call light in reach, no concerns at this time.
--- NOTE | 2021-04-16 09:29 | HMH.PULMPN ---
Internal Medicine - PN: Subj *Date: 04/16/21 *Time: 13:28 Interval history: Patient denies any new respiratory complaints. Stable symptoms since yesterday. Exam - Constitutional Constitutional:: Present: no acute distress, comfortable - HENMT Exam HENMT: Present: normocephalic, moist mucous membranes - Eye Exam Eyes:: Present: normal appearance both eyes and related structures - Neck Exam Neck:: Present: normal visual inspection - Respiratory Exam Respiratory:: Present: able to speak in complete sentences, respiratory distress, rales - Cardiovascular Exam Cardiac:: Present: S1, S2 - GI Exam GI:: Present: soft - Skin Exam Skin: Present: warm, no rash, dry - Neurological Exam Neurological: Present: alert, awake, normal cognition - Extremities Exam Extremities: Present: no cyanosis, no clubbing, no edema Assessment and Plan - Assessment and plan all Dx Assessment and Plan for all problems:: #Acute hypoxic respiratory failure: #COVID-19 pneumonia: 61-year-old significant smoking history no prior respiratory complaints presented to the hospital worsening respiratory distress. Had a recent diagnosis of COVID-19 1 after which he received monoclonal antibody infusion along with steroids as well as initiating anticoagulation on an outpatient basis as per the patient but his CTA for dissection today was negative for any pulmonary embolism. Influenza AB PCR negative. SARS-CoV-2 PCR positive on this admission. CTA on this admission did not show any significant changes from his recent prior, however showed bilateral diffuse patchy groundglass opacities. No mediastinal or hilar adenopathy noted. Afebrile. No evidence of leukocytosis. Renal function stable. D-dimer elevated at 0.74. LDH at 275. CRP mildly elevated at 11.2. Ferritin at 1130. Interval update: Patient respiratory status remained stable since yesterday. He continued to be on 6 L nasal cannula saturating 92% and above. He continued to follow proning protocol. We will hold off on initiating Barcitinib as no significant elevation in CRP. Plan: Continue awake proning protocol. Continue dexamethasone for COVID-19 pneumonia. Patient refused remdesivir. Continue levofloxacin for total of 5 days. Advair 250 HFA twice daily. DuoNebs every 6 hours as needed Recommend chemical DVT prophylaxis #Thank you for involving pulmonary in this patient care. We will continue to follow.
--- NOTE | 2021-04-16 10:17 | HMH.HP ---
*Admission Date: 04/15/21 *Chief complaint: SHortness of breath *History of present illness: 51-year-old male patient presented to the [facility] emergency department with reports of increasing shortness of breath, generalized weakness, productive yellow cough, and nasal congestion. He reports he was prescribed oxygen by cardiology and can go up to 4 L per nasal cannula as needed, he reports he was using 3 L at home and reported he was still having increased shortness of breath. He is Covid positive as of 8 days ago and reports being symptomatic for 11 days he is also been on prednisone and levofloxacin for bilateral pneumonia and was also started on Xarelto he denies headache, visual changes, swelling or pain. And does admit to fever/chills/body aches he also denies nausea, vomiting, or abdominal pain. 04/15/21 CXR: FINDINGS: The cardiomediastinal silhouette and pulmonary vascularity are within normal limits. Persistent bilateral areas of consolidation and atelectatic changes consistent with Covid19 pneumonia. Overall not significantly changed. No effusions or pneumothorax. No acute bony abnormalities. IMPRESSION: No change bilateral Covid19 pneumonia Dictated by: Christopher Hanna MD 04/15/21 Chest CTA: FINDINGS: Pulmonary arteries: No pulmonary emboli identified. Aorta: Unremarkable. No aortic aneurysm. No aortic dissection. Lungs: No substantial change in the appearance of patchy ground-glass airspace opacities throughout all lobes of the lungs bilaterally. Pleural spaces: Similar appearance of 5 mm subpleural nodules in the lingula (series 2, image 179) and left lower lobe (image 204). Heart: Unremarkable. No cardiomegaly. No pericardial effusion. Lymph nodes: Unremarkable. No enlarged lymph nodes. Liver: Similar low-density lesions at the hepatic dome. Bones/joints: Remote appearing wedge deformities in the midthoracic spine. No acute fractures. Soft tissues: Unremarkable. IMPRESSION: 1. No pulmonary emboli identified. 2. No substantial change in the appearance of multilobar pneumonia relative to 04/11/2021. 3. Redemonstrated 5 mm left lung nodules. For patients at low risk (minimal or absent history of smoking and of other known risk factors), no routine follow-up is indicated. For patients at high risk (history of smoking or of other known risk factors), consider optional CT Chest at 12 months. Electronically signed by Alexandra Collado MD This 61-year-old male patient lying in bed resting quietly with eyes open, reports he feels better today than he did yesterday reports occasional shortness of breath during the night with exertion. Current oxygenation status 94% on 6 L per nasal cannula. Pronation encouraged [facility] History I have reviewed the patient's past medical history: Yes Medical History: Reports:: Gastroesophageal Reflux Disease(GERD), Hyperlipidemia Denies:: Cancer, Diabetes Mellitus Type 1, Diabetes Mellitus Type 2, Internal Pacemaker, Lung Disease, MRSA, Seizures *Have you ever received a pneumonia vaccine?: No *Have you received a flu vaccine this season?: No Other Medical History: Reports: Other Laterality Cases: Bilateral: Tonsillectomy Other Surgeries: Yes: Other (cystectomy). No: Pacemaker Amputation: No Fractures: No - *Social History Last grade of school completed: High school graduate Smoking Status: Never smoker Alcohol Intake: never Substance Use Type: denies use *Occupational Status:: employed Housing: house Household Members: spouse *Travel in the last 8 weeks: None Family Hx:: Non-contributory Review of Systems - Review of Systems Review of systems:: pertinent systems reviewed and negative unless documented below - Constitutional Reports fatigue, Reports fever(s), Reports weakness, Denies anorexia, Denies headache(s) - Eyes Denies change in vision, Denies double vision - ENT Denies dizziness, Denies difficulty swallowing - *C
--- NOTE | 2021-04-16 16:06 | PC.NURSE ---
pt has rested well in his room this shift. he is alert and oriented, independent and is agreeable to prone while aware. pt appears slightly worried and scared about diagnosis of covid. lungs are clear throughout, bowel sounds are active in all quads.
--- NOTE | 2021-04-16 19:38 | PC.NURSE ---
1929 Dr Sage called to check on pt. Order received for Ativan 1 mg IV q4-6h prn anxiety. Dr Mims notified of new orders
[2021-04-17] VITALS (12 sets, daily range): BP systolic 113–154; BP diastolic 62–86; PULSE 56–104; RESP 17–22; TEMP 36.5–37.1; O2SAT 90–98; BMI 30.5
--- NOTE | 2021-04-17 03:18 | PC.NURSE ---
Pt was anxious at beginning of shift, but has rested well t/o the rest of night. Has been up to BR x1. Tolerated well. VSS. Pt O2 was titrated from 6L O2 NC to 5L O2 NC this AM. Tolerating well. Lungs are diminished t/o. Pt educated on prone position and is currently in prone now. Pt NSR to sinus bradycardia with HR as low as 48 for brief moment. Pt has not c/o of any discomfort. No other concerns at this time. Will continue to monitor.
[2021-04-17 05:08] LABS: Anion Gap 9.2 mEq/L (5-15); Blood Urea Nitrogen 19 mg/dl (9-20); Calcium 8.6 mg/dl (8.4-10.2); Carbon Dioxide 27 mmol/L (22.0-30.0); Chloride 106 mmol/L (98-107); Creatinine Clearance Estimated 112 mL/min (50-200); Estimated Glomerular Filt Rate 98 ml/min (>60); GFR (African American) 119 ML/MIN (>60); Glucose 97 mg/dl (74-100); Potassium 4.2 mmoL/L (3.5-5.1); Sodium 138 mmol/L (136-145)
[2021-04-17 06:04] LABS: Basophils % 0.2 % (0.1-2.0); Eosinophils % 0.3 % (0.1-12.0); Hematocrit 43.8 % (42.0-52.0); Hemoglobin 14.5 g/dL (14.1-18.0); Lymphocytes # 1.1 K/mm3 (0.7-4.5); Lymphocytes % 12.1 % (10-50); Mean Corpuscular HGB Conc 33.1 g/dL (31.8-35.4); Mean Corpuscular Hemoglobin 29.5 pg (27.0-31.2); Mean Corpuscular Volume 89.2 fl (80-94); Mean Platelet Volume 7.2 fl (7.4-10.4); Monocytes # 0.5 K/mm3 (0.1-1.0); Monocytes % 5.3 % (1.7-9.3); Neutrophils # 7.3 K/mm3 (1.8-7.8); Neutrophils % 82.1 % (37.0-80.0); Platelet Count 392 K/mm3 (142-424); Red Blood Count 4.91 M/mm3 (4.60-6.20); Red Cell Distribution Width 12.9 % (11.5-17.5); White Blood Count 8.9 K/mm3 (4.8-10.8)
--- NOTE | 2021-04-17 08:34 | XR_ITS ---
PROCEDURE: XR CHEST PORTABLE CLINICAL HISTORY: covid pneumonia COMPARISON: CR XR CHEST 2V from 04/23/2020 CR XR CHEST PORTABLE from 04/11/[address] ANGIO CHEST PE PROTOCOL from 04/15/2021 CR XR CHEST PORTABLE from 04/15/2021 FINDINGS: The cardiomediastinal silhouette and pulmonary vascularity are within normal limits. Scattered multifocal ground-glass infiltrates along with atelectatic changes once again noted and does appears slightly worse on both sides. Study is somewhat under penetrated. No evidence of pneumothorax. Right hemidiaphragm is slightly elevated. No acute bony abnormalities. IMPRESSION: Slight worsening bilateral Covid19 pneumonia with atelectatic change Dictated by: Christopher Hanna MD 04/17/2021 10:44 Christopher Hanna MD in OV 04/17/2021 10:44
--- NOTE | 2021-04-17 11:21 | HMH.PULMPN ---
Internal Medicine - PN: Subj *Date: 04/17/21 *Time: 11:21 Interval history: No acute respiratory vents overnight. Patient explains an episode of anxiety attack overnight. Exam - Constitutional Constitutional:: Present: no acute distress, comfortable - HENMT Exam HENMT: Present: normocephalic - Eye Exam Eyes:: Present: normal appearance both eyes and related structures - Neck Exam Neck:: Present: normal visual inspection - Respiratory Exam Respiratory:: Present: able to speak in complete sentences, no respiratory distress, rales - Cardiovascular Exam Cardiac:: Present: S1, S2 - GI Exam GI:: Present: soft, no hepatosplenomegaly - Skin Exam Skin: Present: warm, no rash - Neurological Exam Neurological: Present: alert, awake, normal cognition - Extremities Exam Extremities: Present: no cyanosis, no clubbing, no edema Assessment and Plan (1) COVID-19 Status: Acute Category: Medical Code(s): U07.1 - COVID-19 (2) Pneumonia due to COVID-19 virus Status: Acute Category: Medical Code(s): U07.1 - COVID-19; J12.82 - Pneumonia due to coronavirus disease 2019 (3) Respiratory failure with hypoxia Status: Acute Qualifiers: Chronicity: acute Qualified Code(s): J96.01 - Acute respiratory failure with hypoxia Category: Medical Code(s): J96.91 - Respiratory failure, unspecified with hypoxia - Assessment and plan all Dx Assessment and Plan for all problems:: #Acute hypoxic respiratory failure: #COVID-19 pneumonia: 61-year-old significant smoking history no prior respiratory complaints presented to the hospital worsening respiratory distress. Had a recent diagnosis of COVID-19 1 after which he received monoclonal antibody infusion along with steroids as well as initiating anticoagulation on an outpatient basis as per the patient but his CTA for dissection today was negative for any pulmonary embolism. Influenza AB PCR negative. SARS-CoV-2 PCR positive on this admission. CTA on this admission did not show any significant changes from his recent prior, however showed bilateral diffuse patchy groundglass opacities. No mediastinal or hilar adenopathy noted. Afebrile. No evidence of leukocytosis. Renal function stable. D-dimer elevated at 0.74. LDH at 275. CRP mildly elevated at 11.2. Ferritin at 1130. Interval update: Patient respiratory status improved since yesterday, he this morning saturating 97% on 5 L nasal cannula. Oxygen weaned to 3 L this morning. Continue to wean as tolerated. Plan: Continue awake proning protocol. Continue dexamethasone for COVID-19 pneumonia. Patient refused remdesivir. Continue levofloxacin for total of 5 days. Advair 250 HFA twice daily. DuoNebs every 6 hours as needed Recommend chemical DVT prophylaxis #Thank you for involving pulmonary in this patient care. We will continue to follow.
--- NOTE | 2021-04-17 13:17 | P.PN_ITS ---
Internal Medicine - PN: Subj *Date: 04/17/21 *Time: 09:00 Interval history: pt states he had a good night had a episode where her became anxious last pm. face timed with . 02 at 6 liters per nc Exam Vital signs and Labs for Last 24 Hours: Temp Pulse Resp BP Pulse Ox 97.7 F 70 20 154/86 H 95 04/17/21 11:03 04/17/21 12:00 04/17/21 11:03 04/17/21 11:03 04/17/21 11:03 Laboratory Results - last 24 hr 04/17/21 04:48: WBC 8.9, RBC 4.91, Hgb 14.5, Hct 43.8, MCV 89.2, MCH 29.5, MCHC 33.1, RDW 12.9, Plt Count 392, MPV 7.2 L, Neut % (Auto) 82.1 H, Lymph % (Auto) 12.1, [place] % (Auto) 5.3, Eos % (Auto) 0.3, Baso % (Auto) 0.2, Neut # (Auto) 7.3, Lymph # (Auto) 1.1, Traverse # (Auto) 0.5, Eos # (Auto) 0.0, Baso # (Auto) 0.0 04/17/21 04:48: Sodium 138, Potassium 4.2, Chloride 106, Carbon Dioxide 27, Anion Gap 9.2, BUN 19, Creatinine 0.80, Estimated Creat Clear 112, Estimated GFR 98, Est GFR ( Amer) 119, Glucose 97, Calcium 8.6 I & O for Last 24 hours: Intake & Output 04/15/21 04/16/21 04/17/21 04/18/21 11:59 11:59 11:59 11:59 Intake Total 1108 / 1108 2880 / 2880 240 / 240 Balance 1108 / 1108 2880 / 2880 240 / 240 Weight 225 lb 224 lb 13.944 oz 218 lb Microbiology Reports for the Last 24 Hours: Microbiology 04/15/21 11:00 Blood Blood Culture - Preliminary NO GROWTH AFTER 48 HOURS 04/15/21 11:00 Blood Blood Culture - Preliminary NO GROWTH AFTER 48 HOURS - Constitutional no acute distress - *Routine HEENT Exam Head: Present: normocephalic Eye: Present: PERRL ENT: Present: mucous membranes moist - *Routine Neck Exam Present: supple. Absent: lymphadenopathy - *Routine Respiratory Exam Present: crackles - *Routine Cardiovascular Exam Present: RRR - *Routine Abdominal Exam Present: soft, normoactive bowel sounds. Absent: tenderness - *Routine Extremities Exam Absent: cyanosis, clubbing, edema - *Routine Skin Exam Present: warm. Absent: rash - *Routine Neurological Exam Present: alert, oriented X3 Assessment and Plan (1) COVID-19 Status: Acute Category: Medical Code(s): U07.1 - COVID-19 (2) Pneumonia due to COVID-19 virus Status: Acute Category: Medical Code(s): U07.1 - COVID-19; J12.82 - Pneumonia due to coronavirus disease 2019 (3) Respiratory failure with hypoxia Status: Acute Qualifiers: Chronicity: acute Qualified Code(s): J96.01 - Acute respiratory failure with hypoxia Category: Medical Code(s): J96.91 - Respiratory failure, unspecified with hypoxia - Assessment and plan all Dx Assessment and Plan for all problems:: rounded with dr hendricks all orders per dr hendricks chest xray labs pulm consult
--- NOTE | 2021-04-17 15:06 | PC.NURSE ---
Addendum entered by Dayana White RN 04/17/21 17:09: Pt has been on 2.5L - 3L NC this shift, not 6L Original Note: Pt is alert and oriented x4. Some crackles noted to lung bases and diminished throughout. He remains on 6L NC w/O2 sats running in the low - mid 90's. He's been NSR on telemetry. He has reported having some anxiety as well. MD aware and prn ativan available if needed. He has ambulated to the bathroom w/standby assist or sometimes uses the urinal independently at the bedside. He is currently resting in bed w/echo lab at bedside performing echo. Report called to Laura.
--- NOTE | 2021-04-17 15:56 | DIET.NUTRFU ---
PO intakes 25%, BID supplements added to order.
--- NOTE | 2021-04-17 21:58 | PC.NURSE ---
He is A&Ox4. He sat on the side of the bed and gave himself a bath. He has been ambulating around the room. He continues on 3LPM n/c. He reports a cough with deep breaths. Denies N/V/D. He reports having a BM today. He refused his night dose of ativan. NSR on telemetry. Attempted to turn off monitor in his room so the noise would not bother him but he requested it be turned back on stating he likes to watch it. He denies pain. No edema noted.
[2021-04-18] VITALS (9 sets, daily range): BP systolic 132–156; BP diastolic 84–97; PULSE 60–116; RESP 18–22; TEMP 36.4–37; O2SAT 94–97; BMI 30.2
--- NOTE | 2021-04-18 06:00 | XR_ITS ---
PROCEDURE INFORMATION: Exam: XR Chest Exam date and time: 04/18/2021 6:00 AM Age: 61 years old Clinical indication: Cough and shortness of breath and other: Covid; Additional info: Covid SOB cough TECHNIQUE: Imaging protocol: XR of the chest. Views: 1 view. COMPARISON: CR XR CHEST PORTABLE 04/17/2021 9:04 AM FINDINGS: Lungs: Patchy bilateral opacities may represent multifocal pneumonia including COVID-19. Pleural spaces: Unremarkable. No pleural effusion. No pneumothorax. Heart/Mediastinum: Unremarkable. No cardiomegaly. Bones/joints: Unremarkable. IMPRESSION: Patchy bilateral opacities may represent multifocal pneumonia including COVID-19.
[2021-04-18 06:07] LABS: Chloride 104 mmol/L (98-107); Sodium 140 mmol/L (136-145)
[2021-04-18 06:08] LABS: Potassium 4.2 mmoL/L (3.5-5.1)
[2021-04-18 06:11] LABS: Anion Gap 12.2 mEq/L (5-15); Blood Urea Nitrogen 18 mg/dl (9-20); Calcium 8.9 mg/dl (8.4-10.2); Carbon Dioxide 28 mmol/L (22.0-30.0); Creatinine Clearance Estimated 108 mL/min (50-200); Estimated Glomerular Filt Rate 86 ml/min (>60); GFR (African American) 104 ML/MIN (>60); Glucose 96 mg/dl (74-100)
[2021-04-18 06:18] LABS: Basophils % 0.3 % (0.1-2.0); Eosinophils % 0.5 % (0.1-12.0); Hematocrit 46.3 % (42.0-52.0); Lymphocytes # 1.2 K/mm3 (0.7-4.5); Mean Corpuscular HGB Conc 32.4 g/dL (31.8-35.4); Mean Corpuscular Hemoglobin 29.7 pg (27.0-31.2); Mean Corpuscular Volume 91.4 fl (80-94); Mean Platelet Volume 7.8 fl (7.4-10.4); Monocytes # 0.3 K/mm3 (0.1-1.0); Monocytes % 4.4 % (1.7-9.3); Neutrophils # 6.2 K/mm3 (1.8-7.8); Neutrophils % 79.8 % (37.0-80.0); Platelet Count 461 K/mm3 (142-424); Red Blood Count 5.07 M/mm3 (4.60-6.20); Red Cell Distribution Width 13.6 % (11.5-17.5); White Blood Count 7.7 K/mm3 (4.8-10.8)
--- NOTE | 2021-04-18 09:26 | PC.NURSE ---
received call from Chrissy Kowalski APRN stating that pt is to be moved to the floor today with telemetry and cont pulse ox monitor. Informed warehouse engineer (Crystal White RN). Orders entered on her behalf.
--- NOTE | 2021-04-18 11:26 | PC.NURSE ---
pt transported to med surg unit room 202 via bed by Valerie Hampton RN and Liv Owens.
--- NOTE | 2021-04-18 11:37 | ECG_ITS ---
APPROVED REPORT Exam: Resting ECG HR:86 bpm ECG Measurements Heart Rate 86 AXES NC 142 P 24 QRSd 86 QRS 7 QT 364 T 14 QTc 435 Conclusion Normal sinus rhythm Normal ECG Electronically signed by : Brett Rivas MD 04/19/2021 08:47:13
[2021-04-18 11:55] LABS: Troponin I < 0.01 ng/ml (0.00-0.034)
--- NOTE | 2021-04-18 12:03 | HMH.ACPN2 ---
Internal Medicine - PN: Subj *Date: 04/18/21 *Time: 12:06 Interval history: Patient had no significant respiratory events overnight. He is being moved from the ICU to room 202. He is maintaining 96% saturation on 3 L/min via nasal cannula. He remains anxious but this is modulated by scheduled lorazepam. 1 troponin was negative, EKG shows normal sinus rhythm, normal EKG. Has no complaints of chest pain. Overall he looks brighter. 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 Exam Vital signs and Labs for Last 24 Hours: Temp Pulse Resp BP Pulse Ox 98.6 F 76 20 132/84 96 04/18/21 11:54 04/18/21 11:54 04/18/21 11:54 04/18/21 11:54 04/18/21 11:54 Laboratory Results - last 24 hr 04/18/21 05:12: WBC 7.7, RBC 5.07, Hgb 15.0, Hct 46.3, MCV 91.4, MCH 29.7, MCHC 32.4, RDW 13.6, Plt Count 461 H, MPV 7.8, Neut % (Auto) 79.8, Lymph % (Auto) 15.0, Baldwin % (Auto) 4.4, Eos % (Auto) 0.5, Baso % (Auto) 0.3, Neut # (Auto) 6.2, Lymph # (Auto) 1.2, Baldwin # (Auto) 0.3, Eos # (Auto) 0.0, Baso # (Auto) 0.0 04/18/21 05:12: Sodium 140, Potassium 4.2, Chloride 104, Carbon Dioxide 28, Anion Gap 12.2, BUN 18, Creatinine 0.90, Estimated Creat Clear 108, Estimated GFR 86, Est GFR ( Amer) 104, Glucose 96, Calcium 8.9 04/18/21 10:15: Troponin I < 0.01 I & O for Last 24 hours: Intake & Output 04/15/21 04/16/21 04/17/21 04/18/21 23:59 23:59 23:59 23:59 Intake Total 748 / 868 3060 / 3060 1619 / 1619 2349 / 2349 Output Total 120 / 120 Balance 748 / 868 3060 / 3060 1499 / 1499 2349 / 2349 Weight 224 lb 13.944 oz 218 lb 216 lb Microbiology Reports for the Last 24 Hours: Microbiology 04/18/21 09:25 Sputum - Expectorated Sputum Gram Stain - Final 04/15/21 11:00 Blood Blood Culture - Preliminary NO GROWTH AFTER 48 HOURS 04/15/21 11:00 Blood Blood Culture - Preliminary NO GROWTH AFTER 48 HOURS - Constitutional no acute distress, cooperative - *Routine HEENT Exam Head: Present: normocephalic Eye: Present: EOMI, PERRL ENT: Present: mucous membranes moist - *Routine Neck Exam Present: supple. Absent: lymphadenopathy - *Routine Respiratory Exam Present: crackles. Absent: accessory muscle use, respiratory distress, wheezes - *Routine Cardiovascular Exam Present: RRR - *Routine Abdominal Exam Present: soft, normoactive bowel sounds. Absent: tenderness - *Routine Extremities Exam Absent: cyanosis, clubbing, edema - *Routine Skin Exam Present: warm. Absent: rash - *Routine Neurological Exam Present: alert, oriented X3 Assessment and Plan (1) COVID-19 Status: Acute Category: Medical Code(s): U07.1 - COVID-19 (2) Pneumonia due to COVID-19 virus Status: Acute Category: Medical Code(s): U07.1 - COVID-19; J12.82 - Pneumonia due to coronavirus disease 2019 (3) Respiratory failure with hypoxia Status: Acute Qualifiers: Chronicity: acute Qualified Code(s): J96.01 - Acute respiratory failure with hypoxia Category: Medical Code(s): J96.91 - Respiratory failure, unspecified with hypoxia - Assessment and plan all Dx Assessment and Plan for all problems:: Will continue current regimen. I conferred with Dr. Sage regarding his EKG and troponin. Continue anxiolytic
[2021-04-18 14:16] LABS: Troponin I < 0.01 ng/ml (0.00-0.034)
[2021-04-18 16:53] LABS: Troponin I < 0.01 ng/ml (0.00-0.034)
--- NOTE | 2021-04-18 18:16 | PC.NURSE ---
Since arriving to the floor pt has done well. Pt has ambulated around room w/ steady gait and balance. Pt has been successfully weaned down to 2L NC w/ o2 sats 94% and above. No other acute changes or complaints, will continue to monitor.
[2021-04-18 19:47] LABS: Troponin I < 0.01 ng/ml (0.00-0.034)
[2021-04-18 22:53] LABS: Troponin I < 0.01 ng/ml (0.00-0.034)
[2021-04-19] VITALS: BP 136/82; PULSE 101; PULSE 60; RESP 18; TEMP 36.6; O2SAT 94
--- NOTE | 2021-04-19 03:09 | PC.NURSE ---
A&OX4. TOLERATING 2LNC WELL, O2 SAT IN MID 90S. PT HAS HAD NO C/O PAIN/SOA/ETC THUS FAR. PT HAS SEPT WELL, PRONE T/O MAJORITY OF SHIFT. PT IS STILL EXPERIENCING SOME ANXIETY. VSS WILL CONTINUE TO MONITOR.
[2021-04-19 04:00] VITALS: BP 116/70; PULSE 79; RESP 20; TEMP 36.6; O2SAT 99
[2021-04-19 04:40] VITALS: BMI 30.2
--- NOTE | 2021-04-19 06:00 | XR_ITS ---
PROCEDURE INFORMATION: Exam: XR Chest Exam date and time: 04/19/2021 6:00 AM Age: 61 years old Clinical indication: Shortness of breath and other: Covid; Additional info: Covid SOB TECHNIQUE: Imaging protocol: XR of the chest. Views: 1 view. COMPARISON: CR XR CHEST PORTABLE 04/18/2021 5:41 AM FINDINGS: Tubes, catheters and devices: Leads overlying chest. Lungs: Scattered moderate peripheral patchy airspace opacities, likely unchanged allowing for difference in technique. Pleural spaces: Cannot exclude small RIGHT pleural effusion. No pneumothorax. Heart/Mediastinum: No cardiomegaly. Bones/joints: No displaced fracture. Soft tissues: Unremarkable. IMPRESSION: Findings compatible with multifocal pneumonia (bacterial or viral). Followup to resolution to exclude underlying pathology.
[2021-04-19 06:36] LABS: Basophils % 0.4 % (0.1-2.0); Eosinophils # 0.1 K/mm3 (0.0-0.4); Eosinophils % 0.7 % (0.1-12.0); Hematocrit 45.8 % (42.0-52.0); Lymphocytes # 1.2 K/mm3 (0.7-4.5); Lymphocytes % 15.8 % (10-50); Mean Corpuscular HGB Conc 32.7 g/dL (31.8-35.4); Mean Corpuscular Hemoglobin 29.9 pg (27.0-31.2); Mean Corpuscular Volume 91.5 fl (80-94); Mean Platelet Volume 7.9 fl (7.4-10.4); Monocytes # 0.3 K/mm3 (0.1-1.0); Monocytes % 4.3 % (1.7-9.3); Neutrophils # 5.9 K/mm3 (1.8-7.8); Neutrophils % 78.7 % (37.0-80.0); Platelet Count 458 K/mm3 (142-424); Red Cell Distribution Width 13.8 % (11.5-17.5); White Blood Count 7.5 K/mm3 (4.8-10.8)
[2021-04-19 06:46] LABS: Chloride 102 mmol/L (98-107)
[2021-04-19 06:47] LABS: Potassium 4.1 mmoL/L (3.5-5.1); Sodium 138 mmol/L (136-145)
[2021-04-19 06:50] LABS: Anion Gap 11.1 mEq/L (5-15); Blood Urea Nitrogen 20 mg/dl (9-20); Calcium 9.2 mg/dl (8.4-10.2); Carbon Dioxide 29 mmol/L (22.0-30.0); Creatinine Clearance Estimated 108 mL/min (50-200); Estimated Glomerular Filt Rate 86 ml/min (>60); GFR (African American) 104 ML/MIN (>60); Glucose 97 mg/dl (74-100)
[2021-04-19 08:00] VITALS: BP 124/72; PULSE 87; PULSE 96; RESP 18; TEMP 36.7; O2SAT 92; O2SAT 93
[2021-04-19 12:00] VITALS: BP 146/81; PULSE 66; PULSE 82; RESP 16; TEMP 36.8; O2SAT 95
--- NOTE | 2021-04-19 12:34 | HMH.DCSUM ---
General - General Admission date:: 04/15/21 Discharge date: 04/19/21 HPI HPI: 51-year-old male patient presented to the [facility] emergency department with reports of increasing shortness of breath, generalized weakness, productive yellow cough, and nasal congestion. He reports he was prescribed oxygen by cardiology and can go up to 4 L per nasal cannula as needed, he reports he was using 3 L at home and reported he was still having increased shortness of breath. He is Covid positive as of 8 days ago and reports being symptomatic for 11 days he is also been on prednisone and levofloxacin for bilateral pneumonia and was also started on Xarelto he denies headache, visual changes, swelling or pain. And does admit to fever/chills/body aches he also denies nausea, vomiting, or abdominal pain. 04/15/21 CXR: FINDINGS: The cardiomediastinal silhouette and pulmonary vascularity are within normal limits. Persistent bilateral areas of consolidation and atelectatic changes consistent with Covid19 pneumonia. Overall not significantly changed. No effusions or pneumothorax. No acute bony abnormalities. IMPRESSION: No change bilateral Covid19 pneumonia Dictated by: Christopher Hanna MD 04/15/21 Chest CTA: FINDINGS: Pulmonary arteries: No pulmonary emboli identified. Aorta: Unremarkable. No aortic aneurysm. No aortic dissection. Lungs: No substantial change in the appearance of patchy ground-glass airspace opacities throughout all lobes of the lungs bilaterally. Pleural spaces: Similar appearance of 5 mm subpleural nodules in the lingula (series 2, image 179) and left lower lobe (image 204). Heart: Unremarkable. No cardiomegaly. No pericardial effusion. Lymph nodes: Unremarkable. No enlarged lymph nodes. Liver: Similar low-density lesions at the hepatic dome. Bones/joints: Remote appearing wedge deformities in the midthoracic spine. No acute fractures. Soft tissues: Unremarkable. IMPRESSION: 1. No pulmonary emboli identified. 2. No substantial change in the appearance of multilobar pneumonia relative to 04/11/2021. 3. Redemonstrated 5 mm left lung nodules. For patients at low risk (minimal or absent history of smoking and of other known risk factors), no routine follow-up is indicated. For patients at high risk (history of smoking or of other known risk factors), consider optional CT Chest at 12 months. Electronically signed by Alexandra Collado MD This 61-year-old male patient lying in bed resting quietly with eyes open, reports he feels better today than he did yesterday reports occasional shortness of breath during the night with exertion. Current oxygenation status 94% on 6 L per nasal cannula. Pronation encouraged Hospital Course Hospital Course: Patient had been symptomatic with Covid x11 days prior to his admission. He was admitted with worsening respiratory distress. Was placed in the intensive care unit and closely monitored. He received dexamethasone, Lovenox, Levaquin and Pepcid. He had some episodes of significant anxiety and received lorazepam scheduled. Patient was Mario from ICU to [facility] he was closely monitored. He maintained good saturations, and nursing staff informed me most recently that he was 95% on room air. He still experienced dyspnea with exertion. He already has oxygen at home. Patient feels that he has clinically improved and is comfortable with the idea of going home with subsequent follow-up. Serial chest x-rays were done, these demonstrated multifocal pneumonia consistent with Covid blood cultures have been negative. Our pulmonary sfdc consultant recommended started on a regimen of Advair Levaquin and bronchodilators. Objective Vital signs: Temp Pulse Resp BP Pulse Ox 98.3 F 66 16 146/81 H 95 04/19/21 12:00 04/19/21 12:00 04/19/21 12:00 04/19/21 12:00 04/19/21 12:00 no acute distress, cooperative - *Routine H
--- NOTE | 2021-04-19 14:37 | PC.WOUNDNOTE ---
pt has been discahrged via private car. Educated on follow up appts and medications. Removed iv, and heart monitor.
--- NOTE | 2021-04-20 10:24 | SW/DCPLANNER ---
Patients family has requested a hospital bed and a conserving device: Dr Kaminski concurs with this order. Patient information/order will be faxed to [facility] once Dr Kaminski paperwork is completed.
== END 2021-04-19 14:30 | disposition home or self-care (01) | DRG 177 ==
LOC: ER 12:33 → ICU 13:40 → 2ND 04-17 15:32 → ICU 04-17 15:57 → 2ND 04-18 10:16
PROVIDERS: Internal Medicine; Internal Medicine Pulmonary Disease; Nurse Practitioner Family; Admitting Provider Emergency Medicine; Emergency Provider Student in an Organized Health Care Education/Training Program; PCP Emergency Medicine; Visit Provider Emergency Medicine
DX: U07.1 COVID-19 (principal); J12.82 Pneumonia due to coronavirus disease 2019; J96.01 Acute respiratory failure with hypoxia; Z99.81 Dependence on supplemental oxygen; K21.9 Gastro-esophageal reflux disease without esophagitis; E78.5 Hyperlipidemia, unspecified
CPT/HCPCS: 36415; 71045; 71275; 80048; 80053; 82728; 83605; 83615; 84484; 85007; 85025; 85378; 86140; 87040; 87070; 87077; 87205; 93005; 93306; 94640; 94761; 99284; C9803; J1956; Q9967; U0003; U0005

== ENCOUNTER → 2022-03-09 08:11 | Outpatient (POV) | payer BC, SELFPAY | PROVIDERS: Visit Provider Dermatology | DX: Z00.00 Encounter for general adult medical examination without abnormal findings (principal) ==

== ENCOUNTER → 2022-04-13 13:34 | Outpatient (POV) | payer BC, SELFPAY | PROVIDERS: Visit Provider Dermatology | DX: Z00.00 Encounter for general adult medical examination without abnormal findings (principal) ==

== ENCOUNTER → 2022-04-20 09:17 | Outpatient (POV) | payer BC, SELFPAY | PROVIDERS: Visit Provider Dermatology | DX: Z00.00 Encounter for general adult medical examination without abnormal findings (principal) ==

== ENCOUNTER → 2022-05-11 09:06 | Outpatient (POV) | payer BC, SELFPAY | PROVIDERS: Visit Provider Dermatology | DX: Z00.00 Encounter for general adult medical examination without abnormal findings (principal) ==

== ENCOUNTER 2023-02-15 08:30 | Outpatient (RCR) | payer BC, SELFPAY ==
--- NOTE | 2023-01-25 14:48 | HMH.PTOPEV ---
PT Outpatient Evaluation Rehab PT Outpatient Evaluation Start: 01/25/23 12:55 Freq: Status: Active Protocol: Document 01/25/23 12:56 YAIMA (Rec: 01/25/23 14:48 YAIMA [id number]) E-signed By Estela Cortez, PT Outpatient Therapy Subjective History Subjective History Pt is a 63 y/o male who reports onset of right medial knee pain after a fall 2 weeks ago. 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 Pt denies having imaging since the injury. Pt reports overall he feels that pain has improved since the initial injury. Pt reports pain is still aggravated by extreme bending or straightening the knee, traversing stairs, squatting and twisting/rotating the knee . Pt reports his knee will also get stiff with prolonged sitting and seems to feel better when he is active. Pt states he still has some medial knee swelling and is just taking occasional OTC Ibuprofen as needed. Pt reports he initially wore a knee brace which did seem to help with pain/stability. Pt reports he still has instancs of the knee feeling like it will give out while walking, denies falls. Pt also denies paresthesia, back, hip or ankle pain. Medical History: high cholesterol LEFS: 45/80 Chief Complaint Pain,Stiff,Swelling,Gives out/ Unstable Symptom Type Ache,Sharp,Dull Symptoms Relieved By Activity Symptoms Aggravated By Physical Activity,Twisting, Walking Prior Functional Limitations None Current Functional Limitations Sitting,Squatting,Recreation Activity,Walking,Stairs Symptom Description Constant but Variable Level of pain today (0-10) 3 Pain scale - at its best (0-10) 0 Pain scale - at its worst (0-10) 10 Hip/Knee Eval Palpation Tenderness right Knee Palpation Finding Tenderness Knee Palpation Overall Comment medial joint line, MCL, med femoral condyle left Knee Palpation Finding None/Normal Hip Palpation Findings None/Normal MMT right Hip Flexion Strength Grade 5 Normal Hip Abduction Strength Grade 4 Good Hip Extension Strength Grade 4 Good Knee Extension Strength Grade 5 Normal Knee Flexion Strength Grade 5 Normal left Hip Strength Reason Not Measured WFL ROM right Knee Extension Active Range of Motion ( 0 degrees) Knee Flexion Active Range of Motion ( 125 degrees) left Knee ROM Reason Not Measured Within Functional Limits Effusion joint effusion knee exam standard right Mid - Patellar Circumerential Measure ( 39.5 cm) Special Tests Knee Apley Compression Test Negative Right Knee Anterior Drawer Test Negative Right Knee Valgus Stress Test Negative Right Knee Varus Stress Test Negative Right Knee Malcolm Test Positive Right Outpatient Therapy Assessment Impairments Problems/Impairmments Palpation Tenderness,Impaired Strength,Impaired Walking, Impaired Sitting,Impaired Stair Climbing,Impaired Squatting,Subjective C/O Pain, Impaired Self Care/Self Management Prognosis Rehab Potential Good Clinical Impression Consistent with Diagnosis Yes Short Term Goals Number of Weeks 3 Increase Strength Yes: Improve R hip strength to 4+/5 to assist with functional activities Decrease Subjective C/O Pain Yes: Improve pain at worst to 8/10 to improve overall QOL Patient to be Ind w/ 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 Number of Weeks 6 Decreased Palpation Tenderness Yes: mild-no TTP of medial R knee complex Increase Strength Yes: Improve hip strength to 5 /5 grossly Improve Ability to Climb Stairs Yes: 1 flight reciprocally with pain to assist with community navigation Improve Ability to Squat Yes: perform BW squat with proper mechanics & pain 6/10 or less to assist w ADLs Decrease Edema Yes Decrease Subjective C/O Pain Yes: Improve pain at worst to 6/10 to improve overall QOL Improve Self Care/Self Management Yes: Improve LEFS to at least 60/80 to improve overall QOL Patient to be Ind w/ Advanced HEP Yes Outpatient Therapy Plan of Care Treatment Plan May Include Therapeutic Exercise Including Home Yes Exercise Program Manual Therapy Techniques Yes Neuromuscular Re-education Yes Therapeutic Activities to Return to Yes Previous Functional/Work Level Gait Training Yes ADL/Self Care Education Yes Dry Needling Yes Thermal Modalities Yes Electrical Stimulation Yes Ultrasound/Phonophoresis Yes Iontophoresis Yes Orthotics/Bracing/Splinting Yes Vasopneumatic Compression Pump Yes Massage Yes Eval/Re-Eval Yes Frequency Times per week 2 Duration Number of Weeks 4-6 Addendums This patient is a candidate for social No or vocational rehab? Patient/Guardian verbally acknowledges Yes understanding of treatment program and consents to further treatment? Patient/Guardian verbally acknowledges Yes understanding of diagnosis, prognosis and goals for treatment? G -code Required No Eval Complexity PT Charges 63210 - Low Complexity Shoulder/Elbow Eval Shoulder Objective Measurements Elbow Objective Measurements PHYSICIAN CERTIFICATION: I certify the specified therapy services for [facility] [place] are required, authorized, and reviewed every 30 days.
== END 2023-02-15 09:45 | disposition home or self-care (01) ==
LOC: PT 08:30
PROVIDERS: PCP Nurse Practitioner Family; Visit Provider Physician Assistant
DX: M25.561 Pain in right knee (principal)
CPT/HCPCS: 97110; 97163; 97530

== ENCOUNTER → 2023-03-02 15:55 | Outpatient (CLI) | payer BC, SELFPAY ==
--- NOTE | 2023-03-02 16:01 | XR_ITS ---
FINAL REPORT CLINICAL HISTORY: KNEE PAIN FINDINGS: Right knee Three views were obtained. There is no acute fracture or dislocation. The joint spaces appear normal. No joint effusion is identified. No soft tissue abnormality is identified. IMPRESSION: No acute process. Reviewed, Interpreted and Dictated by Tobias Oneill III, MD Transcribed by Adwoa Dillon Authenticated and [facility]
== END ==
PROVIDERS: PCP Nurse Practitioner Family; Visit Provider Nurse Practitioner Family
DX: M25.561 Pain in right knee (principal)
CPT/HCPCS: 73562

== ENCOUNTER 2024-02-01 08:00 | Outpatient (RCR) | payer BC, SELFPAY ==
--- NOTE | 2024-01-02 11:37 | HMH.OTOPEV ---
OT Inpatient Evaluation Rehab OT Outpatient Eval Start: 01/02/24 11:19 Freq: Status: Active Protocol: Document 01/02/24 11:20 CHRISNINI (Rec: 01/02/24 11:34 CHRISNINI [id number]) E-signed By Nila Dacosta, OT Outpatient Therapy Subjective History Subjective History 51-year-old male patient presented to the [facility] emergency department with reports of increasing shortness of breath , generalized weakness, productive yellow cough, and nasal congestion. He reports he was prescribed oxygen by cardiology and can go up to 4 L per nasal cannula as needed, he reports he was using 3 L at home and reported he was still having increased shortness of breath. He is Covid positive as of 8 days ago and reports being symptomatic for 11 days he is also been on prednisone and levofloxacin for bilateral pneumonia and was also started on Xarelto he denies headache , visual changes, swelling or pain. And does admit to fever /chills/body aches he also denies nausea, vomiting, or abdominal pain. 04/15/21 CXR: FINDINGS: The cardiomediastinal silhouette and pulmonary vascularity are within normal limits. Persistent bilateral areas of consolidation and atelectatic changes consistent with Covid19 pneumonia. Overall not significantly changed. No effusions or pneumothorax. No acute bony abnormalities. IMPRESSION: No change bilateral Covid19 pneumonia Dictated by: Christopher Hanna MD 04/15/21 Chest CTA: FINDINGS: Pulmonary arteries: No pulmonary emboli identified. Aorta: Unremarkable. No aortic aneurysm. No aortic dissection. Lungs: No substantial change in the appearance of patchy ground-glass airspace opacities throughout all lobes of the lungs bilaterally. Pleural spaces: Similar appearance of 5 mm subpleural nodules in the lingula (series 2, image 179) and left lower lobe (image 204 ). Heart: Unremarkable. No cardiomegaly. No pericardial effusion. Lymph nodes: Unremarkable. No enlarged lymph nodes. Liver: Similar low-density lesions at the hepatic dome. Bones/joints: Remote appearing wedge deformities in the midthoracic spine. No acute fractures. Soft tissues: Unremarkable. IMPRESSION: 1. No pulmonary emboli identified. 2. No substantial change in the appearance of multilobar pneumonia relative to 04/11/2021. 3. Redemonstrated 5 mm left lung nodules. For patients at low risk (minimal or absent history of smoking and of other known risk factors), no routine follow-up is indicated . For patients at high risk ( history of smoking or of other known risk factors ), consider optional CT Chest at 12 months. Electronically signed by Alexandra Collado MD This 61-year-old male patient lying in bed resting quietly with eyes open, reports he feels better today than he did yesterday reports occasional shortness of breath during the night with exertion. Current oxygenation status 94% on 6 L per nasal cannula. Pronation encouraged New diagnosis of cancer in past 12 No months? 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 Symptom Type Ache Symptoms Relieved By Nothing Symptoms Aggravated By Physical Activity Prior Functional Limitations None Current Functional Limitations Reaching,Lifting,Sleeping, Recreation Activity Symptom Description Constant and Continuous Level of pain today (0-10) 0 Pain scale - at its best (0-10) 0 Pain scale - at its worst (0-10) 7 Shoulder/Elbow Eval Shoulder Objective Measurements Shoulder ROM Right Shoulder Abduction Active Range of 90 Motion (degrees) Shoulder Flexion Active Range of Motion 90 (degrees) Query Text: Shoulder External Rotation Active Range 40 of Motion (degrees) Shoulder Internal Rotation Active Range 30 of Motion (degrees) pain with active ROM shoulder exam right standard Shoulder MMT Middle Trapezius Strength Grade 2+ Poor+ Upper Trapezius/Levator Scapulae 2+ Poor+ Shoulder Abduction Strength Grade 2+ Poor+ Shoulder Extension Strength Grade 2+ Poor+ Shoulder Flexion Strength Grade 2+ Poor+ Shoulder Horizontal Abduction Strength 2+ Poor+ Grade Shoulder Horizontal Adduction Strength 2+ Poor+ Grade Infraspinatus/Teres Minor Strength Grade 2+ Poor+ Shoulder External Rotation Strength 2+ Poor+ Grade Shoulder Internal Rotation Strength 2+ Poor+ Grade Elbow Objective Measurements QuickDASH Activities Please rate your ability to do the following activities in the last week by selecting the number below the appropriate response. 1. Open a tight or new jar. Mild difficulty 2. Do heavy child caregiver private home (e.g., wash No difficulty chappell, floors). 3. Carry a shopping bag or briefcase. No difficulty 4. Wash your back. Moderate difficulty 5. Use a knife to cut food. No difficulty 6. Recreational activities in which you Mild difficulty take some force or impact through your arm, shoulder, or hand (e.g., golf, hammering, tennis, etc.). 7. During the past week, to what extent Quite a bit has your arm, shoulder or hand problem interfered with your normal social activities with family, friends, neighbors or groups? 8. During the past week, were you Slightly limited limited in your work or other regular daily activites as a result of your arm, shoulder or hand problem? 9. Arm, shoulder or hand pain. Moderate 10. Tingling (pins and needles) in your Mild arm, shoulder or hand. 11. During the past week, how much Moderate difficulty difficulty have you had sleeping because of the pain in your arm, shoulder or hand? Quick DASH 24 OT Outpatient Assessment Impairments Problems/Impairments Impaired Range of Motion, Impaired Strength,Subjective C /O Pain Prognosis Rehab Potential Good Clinical Impression Consistent with Diagnosis Yes Short Term Goals Number of Weeks 2 Increase Range of Motion Yes: Improve AROM of R UE shld flex: 120; abd: 120; er: 50; ir: 40 Increase Strength Yes: Improve R UE shld strength to 3- to 3/5 throughout Decrease Subjective C/O Pain Yes: 6/10 pain at worst Patient to be Ind w/ HEP Yes: AAROM Patient to be Ind w/ Advanced HEP Yes: Strengthening Improve Quick Dash Score Yes: 20 Assisted Goals Number of Weeks 4 Increase Range of Motion Yes: Improve AROM of R UE shld flex: 140; abd: 140; er: 60; ir: 50 Increase Strength Yes: Improve R UE shld strength to 3/5 to 3+/5 throughout Decrease Subjective C/O Pain Yes: 4/10 pain at worst Patient to be Ind w/ HEP Yes: AROM Patient to be Ind w/ Advanced HEP Yes: Advance strengtheing Improve Quick Dash Score Yes: 15 Outpatient Therapy Plan of Care Treatment Plan May Include Therapeutic Exercise Including Home Yes Exercise Program Manual Therapy Techniques Yes Therapeutic Activities to Return to Yes Previous Functional/Work Level Thermal Modalities Yes Electrical Stimulation Yes Ultrasound/Phonophoresis Yes Iontophoresis Yes Eval/Re-Eval Yes Aquatic Therapy Yes Frequency Times per week 2x/wk Duration Number of Weeks 4 weeks Addendums This patient is a candidate for social No or vocational rehab? Patient/Guardian verbally acknowledges Yes understanding of treatment program and consents to further treatment? Patient/Guardian verbally acknowledges Yes understanding of diagnosis, prognosis and goals for treatment? Eval Complexity OT Charge 35903 - Low Complexity PHYSICIAN CERTIFICATION: I certify the specified therapy services for [facility] [place] are required, authorized, and reviewed every 30 days.
== END 2024-02-01 08:05 | disposition home or self-care (01) ==
LOC: OT 08:00
PROVIDERS: Visit Provider Nurse Practitioner Family
DX: M25.511 Pain in right shoulder (principal)
CPT/HCPCS: 97010; 97014; 97110; 97140; 97165; G0283

== ENCOUNTER 2024-07-11 15:14 | Outpatient (RCR) | payer BC, SELFPAY ==
--- NOTE | 2024-07-11 15:48 | [facility].PTOPEV ---
PT Outpatient Evaluation Rehab PT Outpatient Evaluation Start: 07/11/24 15:19 Freq: Status: Active Protocol: Document 07/11/24 15:38 PHORKRISTY (Rec: 07/11/24 15:48 PHORNE [id number]) E-signed By Denys Motta, PT Outpatient Therapy Subjective History Subjective History This is the initial PT eval for Chapo Haynes, 64 yowm who presents with c/o vertigo symptoms for 3-4 mos overall. He reports symptoms were worse with certain positions, typically getting out of bed or rolling to his R side. He reports several episodes in the past month, but he has had no problems for the past week . He reports he also had possible ear infection and was prescribed antibiotics, which have seemed to help significantly. He reports no significant PMH. New diagnosis of cancer in past 12 No months? Chief Complaint Other Symptoms Relieved By Activity Symptom Description Activity Dependent Balance Eval Nystagmus Nystagmus Presence None Oculomotor Gaze Oculomotor Gaze Nml: Vergence Smooth Pursuit Saccades VOR Cancellation Cover/Uncover Cross Cover Miscellaneous Dx PT Eval Objective Objective Merlene-Hallpike and horizontal roll testing shows no nystagmus or symptoms of vertigo. All occulomotor testing is normal. Unable to elicit any symptoms at this time with typical testing in clinic. Outpatient Therapy Assessment Impairments Problems/Impairmments Impaired Self Care/Self Management Prognosis Rehab Potential Innapropriate for Skilled Therapy Comment Skilled therapy not currently indicated as patient has no symptoms of vertigo at this time. If symptoms return, pt was instructed to alert the therapy department ot PCP for re-evaluation. Clinical Impression Consistent with Diagnosis Yes Outpatient Therapy Plan of Care Treatment Plan May Include Eval/Re-Eval Yes Addendums This patient is a candidate for social No or vocational rehab? Patient/Guardian verbally acknowledges Yes understanding of treatment program and consents to further treatment? Patient/Guardian verbally acknowledges Yes understanding of diagnosis, prognosis and goals for treatment? Eval Complexity PT Charges 70457 - High Complexity Shoulder/Elbow Eval Shoulder Objective Measurements Elbow Objective Measurements PHYSICIAN CERTIFICATION: I certify the specified therapy services for Chapokathia Haynes are required, authorized, and reviewed every 30 days.
== END 2024-07-11 23:59 | disposition home or self-care (01) ==
LOC: PT 15:14
PROVIDERS: Visit Provider Nurse Practitioner Family
DX: R42 Dizziness and giddiness (principal)
CPT/HCPCS: 97163